=== PATIENT | male | born 1985 | race Caucasian/White ===

== ENCOUNTER 2017-06-02 01:37 | Emergency (ER) | payer SELFPAY ==
[2017-06-02] MEDS ORDERED: 0.9 % SODIUM CHLORIDE 1,000 ML IV ONE (01:47)
[2017-06-02] MEDS ORDERED: ONDANSETRON HCL/PF 4 MG/ 2ML VIAL ONE (01:47)
[2017-06-02] MEDS: 0.9 % SODIUM CHLORIDE 1,000 ML IV ONE (02:05)
[2017-06-02] MEDS: ONDANSETRON HCL/PF 4 MG/ 2ML VIAL IVP ONE (02:05)
--- NOTE | 2017-06-02 02:14 | ED Physician Documentation ---
General Adult - HISTORIAN Historian: patient, spouse - HPI Stated Complaint: Abdominal pain Chief Complaint: General Adult Further Comments: yes (31 year old male patient brought in by with abdominal pain which started a few hours ago. Patient and yelling at nurse.) - ROS CONST: denies: no problems - PAST HX Past History: none (patient would not answer) Allergies/Adverse Reactions: Allergies Allergy/AdvReac Type Severity Reaction Status Date / Time No Known Allergies Allergy Unverified 06/02/17 01:58 Home Medications: Ambulatory Orders Medication Instructions Recorded NK [NK] 06/02/17 - SOCIAL HX Smoking History: denies: non-smoker - FAMILY HX Family History: No (patient refuses to answer) - REVIEWED ASSESSMENTS Nursing Assessment Reviewed: Yes Vitals Reviewed: Yes Progress - Progress Progress: Lab and urine ordered, NS started and zofran IV started. yelling at nurse multiple times. Patient lying on the floor. Patient would not get off floor for assessment. Would not complete ROS or H&P. requesting CT now. Attempted to explain to that lab needed to be completed for safety. Patient would not give urine sample. Left AMA. "We are going to the [place] where there is a real doctor". ED Results Lab/Radiology - Orders Orders: ED Orders Category Date Time Status Place IV Lock 1T Care 06/02/17 01:58 Active UA W/MICRO IF INDICATED Stat Lab 06/02/17 02:04 Ordered Urine drug screen [DRUG SCREEN URINE MEDICAL ONLY] Stat Lab 06/02/17 Ordered 0.9 % Sodium Chloride [Normal Saline] 1,000 ml Med 06/02/17 01:47 Discontinued IV .STK-MED 0.9 % Sodium Chloride [Normal Saline] 1,000 ml Med 06/02/17 01:58 Active IV Q1H Ondansetron HCl/Pf [Zofran 4 mg/2 ml] Med 06/02/17 01:47 Discontinued 4 mg .ROUTE .STK-MED ONE Ondansetron HCl/Pf [Zofran 4 mg/2 ml] Med 06/02/17 01:59 Discontinued 4 mg IVP NOW ONE General Adult Physical Exam - PHYSICAL EXAM GENERAL APPEARANCE: moderate distress (patient would not allow physical exam) NEURO: No: oriented X3 Discharge Clincal Impression: Left against medical advice Referrals: [place],Rachid Dada [Primary Care Provider] - 2 Days Home Medications: Ambulatory Orders NK [NK] 06/02/17 Condition: Stable Disposition: 07 AGAINST MEDICAL ADVICE Decision to Admit: NO Decision Time: 14:20
== END 2017-06-02 02:10 | disposition left against medical advice (07) ==
LOC: ED 01:37
DX: R10.9 Unspecified abdominal pain (principal); Z53.21 Procedure and treatment not carried out due to patient leaving prior to being seen by health care provider
CPT/HCPCS: J2405; J7030; 96361; 96374; 99281; S1016